=== PATIENT | male | born 1955 | race Caucasian/White ===

== ENCOUNTER 2024-11-03 06:55 | Outpatient (CLI) | payer OTHER, MEDICARE, SELFPAY | END 2024-11-03 06:56 | disposition home or self-care (01) | LOC: AMB 11-06 13:00 | PROVIDERS: Visit Provider Family Medicine | DX: F91.9 Conduct disorder, unspecified (principal) | CPT/HCPCS: A0425; A0427 ==

== ENCOUNTER 2024-11-19 07:38 | Outpatient (CLI) | payer OTHER, MEDICARE, SELFPAY | END 2024-11-19 07:39 | disposition home or self-care (01) | PROVIDERS: Visit Provider Family Medicine | DX: F91.9 Conduct disorder, unspecified (principal) | CPT/HCPCS: A0425; A0427 ==